=== PATIENT | male | born 1995 | race Caucasian/White ===

== ENCOUNTER 2023-01-15 04:20 | Emergency (ER) | payer SELFPAY | END 2023-01-15 05:10 | LOC: ED 04:20 | DX: S01.511A Laceration without foreign body of lip, initial encounter (principal); T74.21XA Adult sexual abuse, confirmed, initial encounter; Y09 Assault by unspecified means; Y93.89 Activity, other specified; Y92.89 Other specified places as the place of occurrence of the external cause; Y99.8 Other external cause status ==